=== PATIENT | female | born 1950 | race Caucasian/White ===

== ENCOUNTER 2016-10-27 12:26 | Emergency (ER) | payer BC ==
[~2016-10-27] VITALS: Ht 167.6 cm; Wt 78.6 kg
[2016-10-27 13:20] LABS: ADD MIUA? YES; BILIRUBIN NEGATIVE; BLOOD NEGATIVE; COLOR YELLOW ((YELLOW)); GLUCOSE (STRIP) NEGATIVE; KETONES NEGATIVE; LEUKOCYTES MODERATE; NITRITE NEGATIVE; PROTEIN (STRIP) NEGATIVE; SPECIFIC GRAVITY 1.018 (1.000-1.030); UROBILINOGEN 0.2 MG/DL (0.2-1.0)
[2016-10-27 13:26] LABS: BACTERIA NONE SEEN /HPF; EPITHELIAL CELLS RARE /HPF; MUCUS TRACE /LPF
[2016-10-27] MEDS ORDERED: NAPROSYN500 MG PO (15:04)
[2016-10-27] MEDS ORDERED: FLEXERIL10 MG PO (15:04)
[2016-10-27] MEDS ORDERED: NORCO 5/3251 TABLET PO (15:04)
[2016-10-27 15:15] VITALS: BP 129/76
== END 2016-10-27 15:17 | disposition home or self-care (01) ==
LOC: EME 12:26
PROVIDERS: Nurse Practitioner Family
DX: M54.5 Low back pain (principal); E78.5 Hyperlipidemia, unspecified; I10 Essential (primary) hypertension; Z96.652 Presence of left artificial knee joint
CPT/HCPCS: 72110; 81003; 99281; 99285; J1885

== ENCOUNTER → 2017-07-14 | Outpatient (CLI) | payer OTHER, BC ==
[~2017-07-14] MED LIST: ASPIR 8181 M1 PO; CINNAMON500 MG PO; COZAAR25 MG PO; COZAAR50 MG PO; FIBER0.4 GM PO; FLEXERIL10 MG PO; NAPROSYN500 MG PO; NORCO 5/3251 TABLET PO; ONCE DAILY1 EACH PO; PREVACID30 MG PO
== END | disposition home or self-care (01) ==
LOC: AMB 09:22
DX: Z12.11 Encounter for screening for malignant neoplasm of colon (principal); D12.8 Benign neoplasm of rectum; K63.5 Polyp of colon; K64.8 Other hemorrhoids; Z87.891 Personal history of nicotine dependence; Z96.659 Presence of unspecified artificial knee joint; Z91.09 Other allergy status, other than to drugs and biological substances
CPT/HCPCS: 88305; 93005; J1100; J2405